=== PATIENT | male | born 1980 | race Caucasian/White ===

== ENCOUNTER 2018-04-29 07:44 | Emergency (ER) | payer OTHER ==
[~2018-04-29] VITALS: Ht 170.2 cm; Wt 104.3 kg
[~2018-04-29 07:44] MED LIST: ALPR1 PO; CEPH500 PO; CIPRO500 MG PO; Flagyl500 MG PO; HYDACE5 PO; IBUP600 PO; IBUP800 PO; META800 PO; PSORIASIS MED; Percocet 5-3251 EACH PO; RANI150 PO; RISP.25; RXHYDACE PO; RXLORA1 PO; RXSULTRIDS PO; SULTRIDS PO; [UNRECOGNIZED DRUG - OTHER]
[2018-04-29] MEDS ORDERED: TREMFYA100 MG/1 M SQ (08:05)
[2018-04-29] MEDS ORDERED: Amoxicillin500 M1 PO (08:23)
[2018-04-29] MEDS ORDERED: NAPR550 PO (08:23)
[2018-04-29] MEDS ORDERED: NYST237S MT (08:27)
== END 2018-04-29 08:42 | disposition home or self-care (01) ==
LOC: ER 07:44
DX: K08.89 Other specified disorders of teeth and supporting structures (principal); Z87.891 Personal history of nicotine dependence
CPT/HCPCS: 99283